=== PATIENT | male | born 1990 | race Caucasian/White ===

== ENCOUNTER 2018-02-28 15:54 | Emergency (ER) | payer SELFPAY ==
[2018-02-28] MEDS ORDERED: Ketorolac Tromethamine 30 MG/ML VIAL ONE (16:44)
--- NOTE | 2018-02-28 17:05 | RAD ---
THREE VIEWS RIGHT HAND: HISTORY: Injury and pain. COMPARISON: None. FINDINGS: There is soft tissue swelling along the dorsal lateral aspect of the right hand. There is an angulat ed fracture involving the fifth metacarpal. An additional nondisplaced fracture involving the proxim al fourth metacarpal is noted. The interphalangeal joint spaces are preserved. IMPRESSION: Fracture involving the fourth and fifth metacarpals. POS: [facility]
== END 2018-02-28 17:27 | disposition home or self-care (01) ==
LOC: ERS 15:54
DX: S62.344A Nondisplaced fracture of base of fourth metacarpal bone, right hand, initial encounter for closed fracture (principal); S62.306A Unspecified fracture of fifth metacarpal bone, right hand, initial encounter for closed fracture; F17.210 Nicotine dependence, cigarettes, uncomplicated; W17.89XA Other fall from one level to another, initial encounter
CPT/HCPCS: 29125; 96372; J1885